=== PATIENT | female | born 2000 | race African-American/Black ===

== ENCOUNTER 2024-04-05 22:59 | Day surgery (SDC) | payer MEDICAID ==
[2024-04-05 23:28] VITALS: BMI 28.0
[2024-04-05] MEDS ORDERED: hydrALAZINE 20 MG/ML VIAL SLOW IVP PRN (23:35)
== END 2024-04-06 00:55 | disposition home or self-care (01) ==
LOC: CSHLD/OP 22:59
PROVIDERS: ATTEND Family Medicine
DX: O36.8130 Decreased fetal movements, third trimester, not applicable or unspecified (principal); O99.013 Anemia complicating pregnancy, third trimester; Z3A.37 37 weeks gestation of pregnancy; Z79.899 Other long term (current) drug therapy
CPT/HCPCS: 76819

== ENCOUNTER 2024-04-18 19:00 | Inpatient (IN) | payer MEDICAID, OTHER ==
[2024-04-18] MEDS ORDERED: Diphenoxylate HCl/Atropine Tablet PO PRN (22:57)
[2024-04-18] MEDS ORDERED: Ondansetron PF 4 MG/2 ML Vial IVP PRN (22:57)
[2024-04-18] MEDS ORDERED: fentaNYL 50 mcg/mL 1 mL Vial SLOW IVP PRN (22:57)
[2024-04-18] MEDS ORDERED: Lidocaine 1% (PF) 30 ML VIAL SC PRN (22:57)
[2024-04-18] MEDS ORDERED: hydrALAZINE 20 MG/ML VIAL SLOW IVP PRN ×2 (22:57)
[2024-04-18] MEDS ORDERED: Promethazine HCl 25 MG/ML VIAL IM PRN (22:57)
[2024-04-18] MEDS ORDERED: Methylergonovine 0.2 MG/ML VIAL IM PRN (22:57)
[2024-04-18] MEDS ORDERED: Acetaminophen 500 MG TAB PO PRN (22:57)
[2024-04-18] MEDS ORDERED: Tranexamic Acid 1,000 MG/10 ML VIAL IVP PRN (22:57)
[2024-04-18] MEDS ORDERED: Carboprost 250 MCG/ML AMP IM PRN (22:57)
[2024-04-18] MEDS ORDERED: Docusate 100 MG CAP PO PRN (22:57)
[2024-04-18] MEDS ORDERED: Penicillin G Potassium 5 MILL.UNITS in Sodium Chloride 0.9% 100 ML IVPB SCH (23:00)
[2024-04-18] MEDS ORDERED: Oxytocin 30 units/NS 500 ML 500 ML IV SCH ×3 (23:00)
[2024-04-18] MEDS ORDERED: Misoprostol 100 MCG TAB VAG SCH (23:00)
[2024-04-18] MEDS ORDERED: Lactated Ringer's 1,000 ML IV SCH (23:00)
[2024-04-18 23:29] LABS: Hematocrit 34.1 % (34.9-44.5); Hemoglobin 11.5 g/dL (12.0-15.5); Mean Corpuscular HGB CONC 33.7 g/dL (32.0-36.0); Mean Corpuscular Hemoglobin 29.2 pg (27.0-33.0); Mean Corpuscular Volume 86.5 fL (81.6-98.3); Mean Platelet Volume 12.8 fL (7.4-10.4); Platelet Count 152 10x3/uL (150-450); RBC Distribution Width 13.8 % (11.5-14.5); Red Blood Cell (RBC) Count 3.94 10x6/uL (3.90-5.03); White Blood Cell (WBC) Count 7.2 10x3/uL (3.5-10.5)
[2024-04-18 23:50] LABS: HBsAg Index 0.18 S/CO (0-0.99); Hep B Surf Ag - L&D Non-Reactive S/CO (NonReactive)
[2024-04-18 23:51] LABS: Syphilis Antibody Nonreactive (Nonreactive); Syphilis Antibody Index 0.03 S/CO (<1.00 Non-Reactive)
[2024-04-19] MEDS: Misoprostol 100 MCG TAB VAG SCH (00:10)
[2024-04-19] MEDS ORDERED: Bupivacaine HCl 0.5%/Epinephrine 1:200,000/PF 30 ml Vial ONE (06:00)
[2024-04-19] MEDS ORDERED: Bupivacaine 0.25% HCL 30 ML VIAL ONE (06:00)
[2024-04-19] MEDS: Penicillin G Potassium 5 MILL.UNITS in Sodium Chloride 0.9% 100 ML IVPB SCH (08:56)
[2024-04-19] MEDS: Penicillin G 2.5 MILL.units 2.5 MILL.UNITS in Premix 1 BAG IVPB SCH (13:35)
[2024-04-19] MEDS: fentaNYL/Ropivacaine Epidural 100 ML ONE (14:09)
[2024-04-19] MEDS ORDERED: Naloxone HCl 0.4 mg/ml Vial IVP PRN ×4 (14:19→21:27)
[2024-04-19] MEDS ORDERED: Lactated Ringer's 500 ML IV PRN (14:19)
[2024-04-19] MEDS ORDERED: Promethazine HCl 25 MG/ML VIAL IM PRN ×2 (14:19→21:27)
[2024-04-19] MEDS ORDERED: Acetaminophen 325 MG TAB PO PRN (14:19)
[2024-04-19] MEDS ORDERED: ePHEDrine Sulfate 50 MG/10 ML VIAL SLOW IVP PRN (14:19)
[2024-04-19] MEDS ORDERED: Communication Order-Pharmacy FS SCH ×2 (14:30→21:30)
[2024-04-19] MEDS ORDERED: fentaNYL 2 mcg/Ropivacaine 0.2% Epidural 100 ML CADD EPIDURAL SCH (14:30)
[2024-04-19] MEDS: Ondansetron PF 4 MG/2 ML Vial IVP PRN (17:47)
[2024-04-19] MEDS: CEFAZOLIN 2 GM VIAL ONE (20:33)
[2024-04-19] MEDS: Azithromycin 500 MG VIAL ONE (20:33)
[2024-04-19] MEDS ORDERED: Ondansetron PF 4 MG/2 ML Vial IVP PRN ×2 (21:27)
[2024-04-19] MEDS ORDERED: diphenhydrAMINE 50 MG/ML VIAL IVP PRN (21:27)
[2024-04-19] MEDS ORDERED: fentaNYL 50 mcg/mL 1 mL Vial SLOW IVP PRN (21:27)
[2024-04-19] MEDS ORDERED: Meperidine HCl/PF 25 MG (1 mL) VIAL SLOW IVP PRN (21:27)
[2024-04-19] MEDS ORDERED: Naloxone HCl 0.4 mg/ml Vial IV PRN (21:27)
[2024-04-19] MEDS ORDERED: Moisturizing Cream (Eucerin) 113 GM JAR TOP PRN (21:27)
[2024-04-19] MEDS ORDERED: Morphine 4 MG/ML VIAL SLOW IVP PRN (21:27)
[2024-04-19 21:29] LABS: Analyzer IN Cardio CS NICU; RapidComm Collect By RN; pH (Cord, venous) 7.299 (7.250-7.350)
[2024-04-19 21:30] LABS: Analyzer IN Cardio CS NICU; RapidComm Collect By RN
[2024-04-19] MEDS ORDERED: Ketorolac Tromethamine 30 MG (1 mL) VIAL IVP SCH (21:30)
[2024-04-19] MEDS: Misoprostol 200 MCG TAB PR PRN (22:30)
[2024-04-20] MEDS ORDERED: Simethicone Chewable 80 MG TAB PO PRN (06:23)
[2024-04-20] MEDS ORDERED: hydrALAZINE 20 MG/ML VIAL SLOW IVP PRN (06:23)
[2024-04-20] MEDS ORDERED: Bisacodyl 10 MG SUPP PR PRN (06:23)
[2024-04-20] MEDS ORDERED: HYDROcodone/Acetaminophen 5/325 mg Tablet PO PRN (06:23)
[2024-04-20] MEDS: diphenhydrAMINE 50 MG/ML VIAL IVP PRN (06:37)
[2024-04-20] MEDS: Ketorolac Tromethamine 30 MG (1 mL) VIAL IVP PRN (06:37)
[2024-04-20] MEDS: Moisturizing Cream (Eucerin) 113 GM JAR TOP PRN (06:38)
[2024-04-20] MEDS: Penicillin G Potassium 5 MILL.UNITS VIAL ONE (07:37)
[2024-04-20] MEDS: Erythromycin Base 0.5% Oint 1 GM TUBE ONE (07:37)
[2024-04-20] MEDS: Phytonadione Neonatal 1 MG/0.5 ML AMP ONE (07:38)
[2024-04-20] MEDS: Hepatitis B Vaccine 10 MCG/0.5 ML SYR ONE (07:38)
[2024-04-20] MEDS: Dexmedetomidine 200 MCG/2 ML VIAL ONE (07:38)
[2024-04-20] MEDS: Morphine PF 10 MG/10 ML VIAL ONE (07:38)
[2024-04-20] MEDS: Sterile Water 20 ML ONE (07:39)
[2024-04-20] MEDS: Sodium Chloride 0.9% 10 ML ONE (07:39)
[2024-04-20] MEDS: Lidocaine 2% MPF 10 ML AMP (For Epidural Use) ONE ×3 (07:39→07:40)
[2024-04-20] MEDS: Tranexamic Acid 1,000 MG/10 ML VIAL ONE ×2 (07:40→07:43)
[2024-04-20] MEDS: Promethazine HCl 25 MG/ML VIAL ONE (07:40)
[2024-04-20] MEDS: Dexamethasone 10 MG/ML VIAL ONE (07:40)
[2024-04-20] MEDS: Ketorolac Tromethamine 30 MG (1 mL) VIAL ONE (07:41)
[2024-04-20] MEDS: fentaNYL 50 mcg/mL 1 mL Vial ONE (07:41)
[2024-04-20] MEDS: Ondansetron PF 4 MG/2 ML Vial ONE (07:41)
[2024-04-20] MEDS: Oxytocin 10 UNITS/ML VIAL ONE ×2 (07:42→07:43)
[2024-04-20] MEDS: Midazolam HCl 2 mg/2 ml Vial ONE (07:42)
[2024-04-20] MEDS: PROPOFOL 0 ML ONE (07:42)
[2024-04-20] MEDS: KETAMINE 100 MG/ML (5ML VIAL) ONE (07:42)
[2024-04-20] MEDS: Carboprost 250 MCG/ML AMP ONE (07:43)
[2024-04-20] MEDS: Boostrix 0.5 ML (Tdap) VIAL (>/=7 yrs of age) IM ONE (07:44)
[2024-04-20] MEDS: Penicillin G 2.5 MILL.units 2.5 MILL.UNITS in Premix 1 BAG IVPB SCH (07:49)
[2024-04-20] MEDS: Prenatal Vitamin 1 TAB PO SCH (08:22)
[2024-04-20 10:07] LABS: D-Dimer Test 5.84 mcg/mL (0.19-0.50); INR-International Normal Ratio 0.9; PTT 24.9 sec (22.0-33.0); Prothrombin Time 9.9 sec (9.5-12.1)
[2024-04-20] MEDS: HYDROcodone/Acetaminophen 5/325 mg Tablet PO PRN (11:13)
[2024-04-20 12:35] LABS: Hematocrit 31.5 % (34.9-44.5); Hemoglobin 10.3 g/dL (12.0-15.5); Platelet Count 161 10x3/uL (150-450)
[2024-04-20] MEDS: Ibuprofen 800 MG TAB PO SCH (14:31)
[2024-04-20] MEDS: Ferrous Sulfate 325 MG TAB PO SCH (18:42)
[2024-04-21 04:26] LABS: Hematocrit 25.9 % (34.9-44.5); Hemoglobin 8.6 g/dL (12.0-15.5); Mean Corpuscular HGB CONC 33.2 g/dL (32.0-36.0); Mean Corpuscular Hemoglobin 29.1 pg (27.0-33.0); Mean Corpuscular Volume 87.5 fL (81.6-98.3); Mean Platelet Volume 11.9 fL (7.4-10.4); Platelet Count 147 10x3/uL (150-450); RBC Distribution Width 13.7 % (11.5-14.5); Red Blood Cell (RBC) Count 2.96 10x6/uL (3.90-5.03); White Blood Cell (WBC) Count 13.2 10x3/uL (3.5-10.5)
[2024-04-21] MEDS ORDERED: Ibuprofen 800 MG TAB PO SCH (06:00)
[2024-04-21 20:14] VITALS: TEMP 97.9
[2024-04-22 13:32] VITALS: BP 121/73
== END 2024-04-22 13:35 | disposition home or self-care (01) | DRG 787 ==
LOC: CSHLD 21:28 → CSHPP 04-20 00:40
PROVIDERS: ADMIT Obstetrics & Gynecology; ATTEND Obstetrics & Gynecology
PROC: 10D00Z1 Extraction of Products of Conception, Low, Open Approach (ICD-10-PCS; principal; 2024-04-19)
PROC: 10907ZC Drainage of Amniotic Fluid, Therapeutic from Products of Conception, Via Natural or Artificial Opening (ICD-10-PCS; 2024-04-19)
PROC: 10H07YZ Insertion of Other Device into Products of Conception, Via Natural or Artificial Opening (ICD-10-PCS; 2024-04-19)
DX: O99.02 Anemia complicating childbirth (principal); O72.1 Other immediate postpartum hemorrhage; Z3A.39 39 weeks gestation of pregnancy; Z37.0 Single live birth; O99.824 Streptococcus B carrier state complicating childbirth; Z79.82 Long term (current) use of aspirin; Z82.49 Family history of ischemic heart disease and other diseases of the circulatory system; O76 Abnormality in fetal heart rate and rhythm complicating labor and delivery; D50.9 Iron deficiency anemia, unspecified
CPT/HCPCS: 76815; 82805; 85014; 85018; 85027; 85049; 85300; 85362; 85384; 85610; 85730; 86780; 86850; 86900; 86901; 87340; J0456; J0665; J1100; J1200; J1885; J2250; J2274; J2405; J2540; J2550; J2590; J2704; J3010; J3490